=== PATIENT | female | born 2000 | race Caucasian/White ===

== ENCOUNTER 2022-02-18 17:31 | Emergency (ER) | payer OTHER ==
[~2022-02-18] VITALS: Ht 167.6 cm; Wt 68.5 kg
[2022-02-18] MEDS ORDERED: CEPHALEXIN500 MG PO (17:45)
== END 2022-02-18 18:21 | disposition home or self-care (01) ==
LOC: ED 17:31
DX: S61.012A Laceration without foreign body of left thumb without damage to nail, initial encounter (principal); W26.0XXA Contact with knife, initial encounter
CPT/HCPCS: 12001; 99282-25; A9270